=== PATIENT | female | born 1975 | race Caucasian/White ===

== ENCOUNTER 2017-10-21 04:47 | Emergency (ER) | payer BC, OTHER ==
[~2017-10-21] VITALS: Ht 167.6 cm; Wt 106.0 kg
[~2017-10-21 04:47] MED LIST: BCPILLS PO; CALC500C3 PO
[2017-10-21 04:49] VITALS: TEMP 36.8; Ht 167.6 cm; Wt 106.0 kg
[2017-10-21] MEDS ORDERED: KETOROLAC TROMETHAMINE 30 MG/ML VIAL IV STA (04:59)
[2017-10-21] MEDS ORDERED: DiphenhydrAMINE HCL 50 MG/ML VIAL IV STA (04:59)
[2017-10-21] MEDS ORDERED: METOCLOPRAMIDE HCL INJ 5 MG/ML 2 ML VIAL IV STA (04:59)
[2017-10-21 05:14] VITALS: O2SAT 98
[2017-10-21] MEDS ORDERED: OPTIRAY 320 IV PRN (05:15)
[2017-10-21 05:27] LABS: BASO % 0.3 %; BASO ABS # 0.02 K/uL (0-0.2); EOS ABS # 0.22 K/uL (0-0.5); HEMATOCRIT 40.1 % (37-47); HEMOGLOBIN 14.5 g/dL (12.0-16.0); IG# 0.02 K/uL (0.00-0.02); LYMPH % 30.6 %; LYMPH ABS # 2.21 K/uL (1.2-3.4); MEAN CELL VOLUME 88.1 fL (80-100); MEAN CORPUSCULAR HEMOGLOBIN 31.9 pg (25-34); MEAN CORPUSCULAR HGB CONC 36.2 g/dl (32-36); MEAN PLATELET VOLUME 9.1 fL (7.4-10.4); MONO % 6.1 %; MONO ABS # 0.44 K/uL (0.11-0.59); NEUT % 59.7 %; NEUT ABS # 4.31 K/uL (1.4-6.5); PLATELET COUNT 268 K/uL (130-400); RED CELL DISTRIBUTION WIDTH CV 12.7 % (11.5-14.5); RED CELL DISTRIBUTION WIDTH SD 40.6 fL (36.4-46.3); WHITE BLOOD COUNT 7.22 K/uL (4.8-10.8)
[2017-10-21 05:28] LABS: ISTAT CREATININE 0.8 mg/dl (0.6-1.3); ISTAT IONIZED CALCIUM 1.18 mmol/l (1.12-1.32); ISTAT POTASSIUM 3.4 mEq/L (3.3-5.0)
[2017-10-21 05:47] LABS: ALBUMIN 3.2 gm/dl (3.4-5.0); ALT/SGPT 18 U/L (12-78); AST/SGOT 11 U/L (15-37); BLOOD UREA NITROGEN 13 mg/dl (7-18); CALCIUM 8.7 mg/dl (8.5-10.1); CARBON DIOXIDE 27 mmol/L (21-32); CREATININE 0.87 mg/dl (0.60-1.20); GLUCOSE 89 mg/dl (70-99); POTASSIUM 3.4 mmol/L (3.5-5.1); SODIUM 138 mmol/L (136-145)
[2017-10-21 05:50] LABS: ALKALINE PHOSPHATASE 48 U/L (45-117); TOTAL PROTEIN 7.6 gm/dl (6.4-8.2)
[2017-10-21] MEDS ORDERED: POTASSIUM CHLORIDE 10 MEQ TABCR PO STA (05:50)
--- NOTE | 2017-10-21 06:02 | EMERGENCY ROOM VISIT NOTE ---
History First contact with patient: 04:52 Chief Complaint: ABDOMINAL PAIN Stated Complaint: RIGHT LOWER ABB PAIN,BACK PAIN,NAUSEA Nursing Triage Summary: Patient reports RLQ abdominal pain for the past 2 days with nausea. History of Present Illness The patient is a 41 year old female who presents to the Emergency Room with complaints of nausea with right side and flank pain for the past 2 days has been intermittent steadily getting worse. Nothing makes it better or worse. Pain 7 out of 10 currently described as aching. It occasionally radiates to her groin region. No history of similar symptoms in the past. No colonoscopy. No history of kidney stones. She still has her appendix. Patient denies chest pain, dyspnea, fever, chills, vomiting, diarrhea, dysuria, hematuria, urgency or frequency, vaginal itching or discharge. She is in a monogamous relationship. Review of Systems An 10 system review of systems was completed with positives and pertinent negatives listed in the HPI. Past Medical/Surgical History Surgical Problems: (1) H/O: Family History Cancer Heart disease Hypertension Social History Smoking Status: Never Smoker Smokeless Tobacco Use: No Alcohol Use: none Drug Use: none Marital Status: Housing Status: lives with significant other Current/Historical Medications Scheduled Control Pills ( Control Pills), 1 TAB PO DAILY Physical Exam Vital Signs Date Time Temp Pulse Resp B/P (MAP) Pulse Ox O2 Delivery O2 Flow Rate FiO2 10/21/17 05:14 98 Room Air 10/21/17 04:49 36.8 74 20 135/92 99 Room Air Physical Exam VITALS: Vitals are noted on the nurse's note and reviewed by myself. Vital signs stable. GENERAL: Pleasant, in no acute distress, nondiaphoretic, well-developed well- nourished. SKIN: The skin was without rashes, erythema, edema, or bruising. There is no tenting of the skin. Capillary reflex less than 2 seconds. HEAD: Normocephalic atraumatic. EARS: External auditory canals clear, tympanic membranes pearly dale without erythema or effusion bilaterally. EYES: Pupils equal round and reactive to light and accommodation. Conjunctivae without injection, sclerae without icterus. Extraocular movements intact. NOSE: Patent, turbinates without inflammation or discharge. MOUTH: Mucous membranes moist. Pharynx without erythema or exudate. Uvula midline. Airway patent. Tongue does not deviate. NECK: Supple without nuchal rigidity. No lymphadenopathy. No thyromegaly. Cervical spine is nontender. No JVD. HEART: Regular rate and rhythm without murmurs gallops or rubs. LUNGS: Clear to auscultation bilaterally without wheezes, rales or rhonchi. No retractions or accessory muscle use. ABDOMEN: Positive bowel sounds x 4. Normal tympanic percussion. Soft, tender to palpation right upper and lower quadrants, minimal right CVA tenderness without masses or organomegaly.No guarding or rebound tenderness MUSCULOSKELETAL: No muscle atrophy, erythema, or edema noted. NEURO: Patient was alert and oriented to person place and time. Normal sensation to light and sharp touch. No focal neurological deficits. Medical Decision & Procedures Laboratory Results 10/21/17 05:06 Red Blood Count 4.55, Mean Corpuscular Volume 88.1, Mean Corpuscular Hemoglobin 31.9, Mean Corpuscular Hemoglobin Concent 36.2, Mean Platelet Volume 9.1, Neutrophils (%) (Auto) 59.7, Lymphocytes (%) (Auto) 30.6, Monocytes (%) (Auto) 6.1, Eosinophils (%) (Auto) 3.0, Basophils (%) (Auto) 0.3, Neutrophils # (Auto) 4.31, Lymphocytes # (Auto) 2.21, Monocytes # (Auto) 0.44, Eosinophils # (Auto) 0.22, Basophils # (Auto) 0.02 10/21/17 05:06 Test 10/21/17 05:00 10/21/17 05:06 10/21/17 05:13 Urine Color YELLOW Urine Appearance CLEAR (CLEAR) Urine pH 5.5 (4.5-7.5) Urine Specific [place] 1.021 (1.000-1.030) Urine Protein NEG (NEG) Urine Glucose (UA) NEG (NEG) Urine Ketones NEG (NEG) Urine Occult Blood 2+ (NEG) Urine Nitrite NEG (NEG) Urine Bilirubin NEG (NEG) Urine Urobilinogen NEG (NEG) Urine Leukocyte Esterase NEG (NEG) Urine WBC (Auto) 1-5 /hpf (0-5) Urine RBC (Auto) 5-10 /hpf (0-4) Urine Hyaline Casts (Auto) 1-5 /lpf (0-5) Urine Epithelial Cells (Auto) >30 /lpf (0-5) Urine Bacteria (Auto) NEG (NEG) Urine Test NEG (NEG) White Blood Count 7.22 K/uL (4.8-10.8) Red Blood Count 4.55 M/uL (4.2-5.4) Hemoglobin 14.5 g/dL (12.0-16.0) Hematocrit 40.1 % (37-47) Mean Corpuscular Volume 88.1 fL (80-100) Mean Corpuscular Hemoglobin 31.9 pg (25-34) Mean Corpuscular Hemoglobin Concent 36.2 g/dl (32-36) Platelet Count 268 K/uL (130-400) Mean Platelet Volume 9.1 fL (7.4-10.4) Neutrophils (%) (Auto) 59.7 % Lymphocytes (%) (Auto) 30.6 % Monocytes (%) (Auto) 6.1 % Eosinophils (%) (Auto) 3.0 % Basophils (%) (Auto) 0.3 % Neutrophils # (Auto) 4.31 K/uL (1.4-6.5) Lymphocytes # (Auto) 2.21 K/uL (1.2-3.4) Monocytes # (Auto) 0.44 K/uL (0.11-0.59) Eosinophils # (Auto) 0.22 K/uL (0-0.5) Basophils # (Auto) 0.02 K/uL (0-0.2) RDW Standard Deviation 40.6 fL (36.4-46.3) RDW Coefficient of Variation 12.7 % (11.5-14.5) Immature Granulocyte % (Auto) 0.3 % Immature Granulocyte # (Auto) 0.02 K/uL (0.00-0.02) Est Creatinine Clear Calc Drug Dose 105.8 ml/min Estimated GFR () 96.6 Estimated GFR (Non- 83.3 BUN/Creatinine Ratio 14.9 (10-20) Calcium Level 8.7 mg/dl (8.5-10.1) Total Bilirubin 0.3 mg/dl (0.2-1) Direct Bilirubin < 0.1 mg/dl (0-0.2) Aspartate Amino Transf (AST/SGOT) 11 U/L (15-37) Alanine Aminotransferase (ALT/SGPT) 18 U/L (12-78) Alkaline Phosphatase 48 U/L (45-117) Total Protein 7.6 gm/dl (6.4-8.2) Albumin 3.2 gm/dl (3.4-5.0) Bedside Hemoglobin 14.3 g/dl (12.0-16.0) Bedside Hematocrit 42 % (37-47) Bedside Sodium 141 mEq/L (135-144) Bedside Potassium 3.4 mEq/L (3.3-5.0) Bedside Chloride 101 mEq/L (101-112) Bedside Total CO2 25 mEq/l (24-31) Anion Gap 18.0 mmol/L (16-25) Bedside Blood Urea Nitrogen 13 mg/dl (7-18) Bedside Creatinine 0.8 mg/dl (0.6-1.3) Bedside Glucose (other) 93 mg/dl (70-99) Bedside Ionized Calcium (Andrew) 1.18 mmol/l (1.12-1.32) Medications Administered Medications (Trade) Dose Ordered Sig/Keny Route Start Time Stop Time Status Last Admin Dose Admin Ketorolac Tromethamine (Toradol Inj) 10 mg NOW STAT IV 10/21/17 04:59 10/21/17 05:01 DC 10/21/17 05:12 10 MG Diphenhydramine HCl (Benadryl Inj) 12.5 mg NOW STAT IV 10/21/17 04:59 10/21/17 05:01 DC 10/21/17 05:12 12.5 MG Metoclopramide HCl (Reglan Inj) 10 mg NOW STAT IV 10/21/17 04:59 10/21/17 05:01 DC 10/21/17 05:12 10 MG ED Course Prior records/ancillary studies reviewed. Triage Nursing notes reviewed. Additional history obtained from family The patient's history was concerning for abdominal pain. Differential diagnosis: Etiologies such as appendicitis, diverticulitis, PUD, biliary pathology, UTI, pancreatitis, obstruction, mesenteric ischemia, aortic pathology, infections, inflammatory bowel disease, renal colic, as well as others were entertained. Physical examination findings: As above. ER treatment provided: Toradol, Reglan, Benadryl On reassessment the patient felt better. Diagnostics interpreted by me: The labs revealed negative hCG. No leukocytosis. Stable H&H. Negative urine Imaging studies: CT ABDOMEN & PELVIS With Contrast: Lower thorax is unremarkable. Probable cyst within the left hepatic lobe. Gallbladder, spleen, pancreas and adrenal glands are unremarkable. Probable cyst with the left kidney. Otherwise kidneys and ureters are unremarkable. Cysts with the left ovary measuring up to 3.4 cm. Uterus is unremarkable. Appendix unremarkable. Bowel is unremarkable. No acute osseous abnormality. Radiologist: Korey Kelly MD Exam and history seem consistent with abdominal flank pain with unclear etiology. Patient felt better to be medicated as above. Patient was neurovascularly and neurologically intact. She was well-appearing. Negative hCG. She is advised to follow-up with [facility] for the cyst noted on CT imaging in the family care doctor in a few days for reevaluation or here in the ER sooner for abdominal pain, fevers, vomiting, worsening signs or symptoms or as needed. Patient did not have acute abdomen on exam. She had no pelvic pain. Symptoms have been ongoing for 2 days now. No signs of shingles. By the evaluation outlined above emergent etiologies such as appendicitis, diverticulitis, PUD, biliary pathology, UTI, pancreatitis, obstruction, mesenteric ischemia, aortic pathology, infections, inflammatory bowel disease, renal colic, as well as others were deemed relatively unlikely. The pt informed about the findings as listed above. All questions were answered and pleased with the treatment. Return instructions were outlined and the patient was discharged in stable condition. Referral: The patient was referred back to their primary care physician and [facility] for follow-up in 2 to 3 days for a recheck of the current condition. Case reviewed with my attending The chart was completed utilizing [employer] Speech voice recognition software. Grammatical errors, random word insertions, pronoun errors, and incomplete sentences are an occassional consequence of this system due to software limitations, ambient noise, and hardware issues. Any formal questions or concerns about the content, text, or information contained within the body of this dictation should be directly addressed to the physician retirement assistant for clarification. Medical Decision As above Medication Reconcilliation Current Medication List: was personally reviewed by me Blood Pressure Screening Patient's blood pressure: Normal blood pressure Impression Primary Impression: Right sided abdominal pain Additional Impressions: Right flank pain Ovarian cyst Hypokalemia Departure Information Dispostion Home / Self-Care Condition GOOD Referrals Gloria Roy M.D. (PCP) Patient Instructions My [facility] Additional Instructions DO NOT drive, drink alcohol, operate machinery, or perform dangerous activities today. You were given medications in the ER that can affect your ability to safely function or operate a vehicle. Recommend repeat pelvic ultrasound in 6 weeks for resolution of cyst. Rest. Stay well hydrated. No strenuous activity until symptoms resolve. Ibuprofen(Motrin, Advil) may be used for fever or pain. Use 600mg every six hours as needed. Take with food. Avoid using more than 2400mg in a 24 hour period. Do not use 2400mg per day for more than three consecutive days without physician direction. Prolonged inappropriate use can lead to stomach upset or ulcers. (AND/OR) Acetaminophen(Tylenol) may be used for fever or pain. Use 1000mg every six hours as needed. Avoid using more than 3000mg in a 24 hour period. Rest and drink plenty of fluids as tolerated. Continue current medications. Return to the ER immediately for severe pain, heavy vaginal bleeding, abdominal pain, vomiting, fevers, chest pains, difficulty breathing, worsening of your condition, or as needed. Follow up with your [facility]IC[facility] and family care doctor in 2-3 days for a recheck of your current condition. Problem Qualifiers
[2017-10-21 06:07] VITALS: BP 116/67; PULSE 63; O2SAT 98
--- NOTE | 2017-10-21 08:52 | DIAGNOSTIC IMAGING REPORT ---
ABDOMEN AND PELVIS CT WITH IV CONTRAST CT DOSE: 1257.45 mGy.cm HISTORY: right side pain, ?appy/GB/stone TECHNIQUE: Multiaxial CT images of the abdomen and pelvis were performed following the use of intravenous contrast. A dose lowering technique was utilized adhering to the principles of ALARA. COMPARISON STUDY: None. FINDINGS: The lung bases are clear. No pneumoperitoneum. No pneumatosis. The gallbladder, spleen, adrenal glands, and right kidney are unremarkable. Single hypodense lesion seen within the left hepatic lobe and left kidney. These likely represent cysts. No hydronephrosis. No retroperitoneal lymphadenopathy. The bladder is not well-distended but appears unremarkable. The right ovary is normal. There is a 3.4 cm left ovarian cyst. An 8 mm subserosal fibroid at the uterine fundus. No bowel wall thickening or obstruction. Normal appendix. IMPRESSION: 1. Normal appendix. 2. No bowel wall thickening or obstruction. 3. No hydronephrosis. 4. Hepatic and left renal cyst. There is also a 3.4 cm left ovarian cyst. Electronically signed by: Partha Beth M.D. 10/21/2017 7:16 AM Dictated Date/Time: 10/21/2017 7:10 AM
== END 2017-10-21 06:10 | disposition home or self-care (01) ==
LOC: C.EDB 04:48 → C.EDA 06:10
DX: R10.31 Right lower quadrant pain (principal); R10.11 Right upper quadrant pain; N83.209 Unspecified ovarian cyst, unspecified side; E87.6 Hypokalemia; Z79.3 Long term (current) use of hormonal contraceptives; Z98.891 History of uterine scar from previous surgery

== ENCOUNTER 2025-01-03 05:35 | Observation (INO) ==
--- NOTE | 2024-12-25 13:44 | Anesthesiology Consultation ---
Date of Service December 25, 2024 Assessment & Plan Chart Review Chart Review: Acceptable Risk for Surgery and Patient NOT seen in Pre Admission Testing Consults Requested none History Surgery Operation Date: 01/03/25 10:00 Proposed Procedures p Laparoscopic Total Hysterectomy, Bilateral Salpingectomy and Cystoscopy, Possible Laparotomy as any Indicated Procedure - Harjit Cesar MD Height/Weight Height: 5 ft 6 in Weight: 115.666 kg Allergies Allergy/AdvReac Type Severity Reaction Status Date / Time No Known Allergies Allergy Verified 12/20/24 09:15 Medications Home Medications Medication Instructions Recorded Confirmed Last Taken norethindrone acetate 5 mg tablet 5 mg PO UD 12/20/24 12/20/24 Unknown Past Medical History Medical History (Updated 12/20/24 @ 09:34 by Coleen Niño) Hx of blood clots 06/2024, 2/ to sx, "superficial per dr" above right ankle, on eliquis for ~2 months only, no recent issues per pt History of anesthesia reaction "blood pressure always goes extremely low, but always wakes up fine" IUD (intrauterine device) in place Hx of gastroesophageal reflux (GERD) no current meds Hx of chest pain 2015, 2/ to acid reflux and esophageal spasm no cardiac findings Past Surgical History Surgical History History of endometrial ablation 06/2024, w/ D&C Hx of section x2 Social History Smoking Status: Never smoker Do You Dip or Chew Tobacco: No Hx Alcohol Use: Yes alcohol intake frequency: holidays/special occasions only Hx Substance Use: No substance use type: does not use
[2025-01-03] MEDS: LR 15ML/HR IV SCH (06:02)
[2025-01-03] MEDS: LACTATED RINGER'S 1,000 ML IV SCH (06:03)
[2025-01-03] MEDS ORDERED: PROMETHAZINE HCL 6.25 MG in SODIUM CHLORIDE 0.9% 50 ML IV PRN (06:42)
[2025-01-03] MEDS ORDERED: FLUMAZENIL 0.1 MG/1 ML 10 ML VIAL IV PRN (06:42)
[2025-01-03] MEDS ORDERED: ONDANSETRON INJ 2 MG/ML 2 ML VIAL IV PRN ×2 (06:42→10:14)
[2025-01-03] MEDS ORDERED: MIDAZOLAM HCL 1 MG/ML 2ML VIAL ONE (06:42)
[2025-01-03] MEDS ORDERED: NALOXONE HCL 0.4 MG/1 ML VIAL/CARP IV PRN (06:42)
[2025-01-03] MEDS ORDERED: ATROPINE SULFATE 0.1 MG/ML 10ML SYR IV PRN (06:42)
[2025-01-03] MEDS ORDERED: LIDOCAINE 2% 2 ML VIAL/AMP(20MG/ML) INFIL ONE (06:43)
[2025-01-03] MEDS ORDERED: ROCURONIUM BROMIDE 10 MG/ML 5 ML VIAL IV ONE ×2 (06:43→08:07)
[2025-01-03] MEDS ORDERED: PROPOFOL IV EMULSION 10 MG/ML 20 ML VIAL IV ONE (06:43)
[2025-01-03] MEDS ORDERED: ONDANSETRON INJ 2 MG/ML 2 ML VIAL ONE ×2 (06:43→09:07)
[2025-01-03] MEDS ORDERED: DEXAMETHASONE SOD INJ 4 MG/ML VIAL ONE ×2 (06:43→07:32)
[2025-01-03] MEDS ORDERED: ACETAMINOPHEN 1000 MG/100 ML IV IV ONE (06:55)
--- NOTE | 2025-01-03 07:00 | History & Physical Bridge Note ---
Date of Service January 03, 2025 History & Physical Bridge Note I have examined the patient, reviewed the History & Physical and in the interval since the performance of the History & Physical I have noted the following changes of clinical significance: no changes noted
[2025-01-03] MEDS ORDERED: ePHEDrine sulfate 50 MG/5 ML SYR ONE (07:39)
[2025-01-03] MEDS ORDERED: KETOROLAC 30 MG/ML VIAL ONE (07:54)
[2025-01-03] MEDS: metroNIDAZOLE 500 MG/100 ML BAG IV SCH (08:10)
[2025-01-03] MEDS: BUPIVACAINE 0.5 % 5 MG/1 ML MPF 30ML VIAL ONE (08:26)
[2025-01-03] MEDS ORDERED: METHYLENE BLUE 0.5% 10 ML VIAL ONE (09:02)
[2025-01-03] MEDS ORDERED: SUGAMMADEX SODIUM 200 MG/2 ML VIAL IV ONE (09:06)
[2025-01-03] MEDS: FLOSEAL HEMOSTATIC MATRIX 10ML TOP ONE (09:13)
[2025-01-03] MEDS: BUPIVACAINE/EPINEPHRINE 0.5% MPF 1:200,000 30 ML VIAL ONE (09:36)
[2025-01-03] MEDS ORDERED: MEPERIDINE HCL 25 MG/ML CARP/VIAL IV PRN (10:14)
[2025-01-03] MEDS ORDERED: ACETAMINOPHEN 325 MG TAB PO PRN (10:14)
[2025-01-03] MEDS ORDERED: ZOLPIDEM TARTRATE 5 MG TAB PO PRN (10:14)
[2025-01-03] MEDS ORDERED: MAGNESIUM HYDROXIDE SUSP 30 ML UDC PO PRN (10:14)
[2025-01-03] MEDS ORDERED: PROMETHAZINE 12.5 MG/50.5 ML BAG IV PRN (10:14)
--- NOTE | 2025-01-03 10:37 | Operative Report ---
Post Operative Report Pre & Post Diagnosis Operation Date: 01/03/25 07:00 Pre-Op Diagnosis: Menorrhagia, Failed Medical Treatment, Fibroid Uterus Post-Op Diagnosis: Menorrhagia, Failed Medical Treatment, Fibroid Uterus I identified the patient and participated in the time-out.: Yes Procedure Operation Date: 01/03/25 07:00 Actual Procedures p Laparoscopic Total Hysterectomy, Bilateral Salpingectomy. resection of left ovary. and Intrauterine Device Removal - Harjit Cesar MD s Cystoscopy - Harjit Cesar MD Surgeon Harjit Cesar MD [employer] roney rios Estimated Blood Loss 10 Findings Consistent with Post-Op Diagnosis Normal female escutcheon no lesions in the vagina or cervix vulva appear grossly normal. IUD string is seen at cervical os and easily removed. Laparoscopic findings showed none to uterus about 12 weeks size. Right ovary and tube appear grossly normal left tube appears normal the left ovary however had an endometrioma like lesion on the anterior surface. There is window hemostasis seen in the posterior cul-de-sac. Rest of the abdominal pelvic exam is unremarkable. Cystoscopy was unremarkable no lesions or masses seen in the bladder. Left and right ureteral orifice are both seen. Blue dye is seen effluxing from both Fluids IVF; 700ml urine: 800ml Specimens Uterus and cervix left and right fallopian resection of left ovary Drains None Anesthesia Type General Complications None Indications Menorrhagia, failed IUD treatment Description of Procedure FINDINGS: DESCRIPTION OF PROCEDURE: The patient was prepped and draped in normal sterile fashion in the dorsal lithotomy position. Means catheter was placed without difficulty. IUD string is present at the cervix. String is grasped with a Yoselyn and removed. IUD sent to pathology for pathological analysis. An AdvincLookIt uterine manipulator was placed in the uterus to help with colpotom y. Attention was paid to the abdominal part of the procedure where a supraumbilical incision was made and carried down to the fascia. Onur was used to grab the fascia. Veress needle was introduced into the abdomen at a 45-degree angle while tenting up the abdomen. Intra-abdominal placement was confirmed with a water-filled syringe. A water drop and suction test was performed. The abdomen was insufflated with CO2 gas. The Veress needle was removed and a 5 mm non bladed trocar was attached to a laparoscope was introduced into the abdomen under direct visualization. This was a non bladed trocar. Once inside the abdomen, laparoscope was repositioned. Inspection of the abdomen shows the findings as dictated above. Three more accessory ports were placed, two 5 mm accessory ports were placed in the lower abdomen on the contralateral side, in addition, an 11 mm trocar was placed on the left upper quadrant. General inspection of the abdomen and pelvis was performed as dictated above. Left and right fallopian tubes, the ureters, uterosacrals, bowels were examined and identified. The left ovary had an endometrioma like lesion on the anterior surface. There was also window of guanakito seen in the posterior cul-de-sac. LigaSure was passed through the left accessory port. LigaSure was used to resect the portion of the endometrioma like lesion on the left ovary and sent to pathology for analysis. There was good hemostasis on the remaining part of the left ovary. The left fallopian tube was identified and grabbed 4 cm from the cornua of the uterus with the LigaSure and transected. This was followed by opening of the left anterior leaf of the broad ligament. This allowed for fenestration of the posterior left broad ligament. The mid-section of the left fallopian tube, utero-ovarian and meso-ovarian pedicles were transected as well. Same procedure was performed on the contralateral side. The anterior broad ligament dissection was carried to the mid-section of the vesicouterine peritoneum over the bladder using the Harmonic scalpel. Same procedure was carried out on the contralateral side. The posterior broad ligament peritoneum was carefully dissected also from both sides over the uterosacral arch in order to displace the ureters laterally. Using traction and countertraction, the [place] retractor and irrigation probe was used to further dissect the bladder off the lower segment of the uterus. Bladder pillars and pubovesical fascia was dissected as well. Harmonic scalpel was used to obtain hemostasis where needed. Uterine manipulator was now palpable over the vaginal tissue. The right uterine pedicles were skeletonized and coagulated with the LigaSure. Good hemostasis was obtained. Same procedure was performed on the contralateral side. Cardinal ligaments were transected on both sides. Once good hemostasis was obtained, colpotomy was performed using the LigaSure hook from both sides. Uterus was removed through the vagina while still attached to the uterine manipulator. The bulb was attached to the uterine manipulator was reinserted into the vagina to establish pneumoperitoneum. With a grasper, the remaining section of the left ovary and tube were positioned anteromedially. The left fallopian tube is grabbed with ligature and transected. The transection is done close to the fallopian tube in order to preserve the ovarian vascular integrity. The left fallopian tube is removed through the 11 mm port . Same procedures performed on the right adnexa. The right fallopian tube is also removed once again leaving the right ovary behind.Right fallopian tube specimen is also removed through the 11 mm port. Both fallopian tube specimens sent to pathology for pathological analysis EndoStitch closure device was passed through the 11 mm port on the left. Using the [place] grasper for traction, colpotomy closure was performed. The uterosacral ligaments incorporated into the closure in order to decrease the risk of prolapse. Lapro ties were used with the EndoStitch. The 11-mm trocar site was closed with a Edwin-Peng under direct visualization. Attention was paid to the cystoscopy part of the procedure where a cystoscope was introduced into the bladder. There are no sutures seen in the bladder. There were no gross blood seen in the bladder as well. The bubble sign is noted showing the bladder was a close cavity. Both ureters were seen and there was efflux from both uterus. The skin incisions are closed with Dermabond, except for the 11-mm trocar site, which was closed with 4-0 Monocryl. The patient was returned to recovery in stable condition. Inspection of the vagina shows the vaginal cuff was intact. All instruments were removed from the vagina and the bladder and accounted for x2. [employer] was necessary for retraction and manipulation of instruments in order to provide for a safe operation I attest to the content of the Intraoperative Record and any orders documented therein. Any exceptions are noted below.
--- NOTE | 2025-01-03 10:55 | Anesthesiology Progress Note ---
Date of Service January 03, 2025 Anesthesia Post Procedure Vital Signs Vital Signs: Temp Pulse Pulse Resp BP Pulse Ox O2 Del Method 01/03/25 10:50 73 21 110/58 L 96 Room Air 01/03/25 10:40 36.6 C 70 17 108/63 98 Room Air 01/03/25 10:30 75 17 112/61 100 Room Air 01/03/25 10:20 68 18 117/60 100 Oxymask 01/03/25 10:10 73 24 114/64 100 Oxymask 01/03/25 10:00 68 23 108/59 L 96 Oxymask 01/03/25 09:54 36.3 C L 71 19 88/54 L 92 Oxymask 01/03/25 05:55 36.9 C 72 18 163/91 H 100 Room Air O2 Flow Rate 01/03/25 10:50 01/03/25 10:40 01/03/25 10:30 01/03/25 10:20 3 01/03/25 10:10 6 01/03/25 10:00 10 01/03/25 09:54 10 01/03/25 05:55 Pain Intensity Lower Abdomen: Pain Intensity: 4 Transfer of Care Handoff Completed per policy Notes Mental Status: alert / awake / arousable Patient Amnestic to Procedure: Yes Nausea / Vomiting: adequately controlled Pain: adequately controlled Airway Patency, RR, SpO2: stable & adequate BP & HR: stable & adequate Hydration State: stable & adequate Anesthetic Complications: no major complications apparent
[2025-01-03] MEDS: KETOROLAC 30 MG/ML VIAL IV PRN (12:05)
[2025-01-03] MEDS: IBUPROFEN 600 MG TAB PO PRN (13:27)
[2025-01-03] MEDS: SIMETHICONE 80 MG CHEW PO PRN (17:06)
[2025-01-03 20:19] LABS: Hematocrit (blood only) 29.4 % (37.0-47.0); Hemoglobin 9.4 g/dl (12.0-16.0); Immature Granulocytes # (auto) 0.04 K/uL (0.01-0.20); Immature Granulocytes % (auto) 0.4 %; Mean Corpuscular Hemoglobin 23.5 pg (25.0-34.0); Mean Corpuscular Volume 73.5 fL (80.0-100.0); Platelet Count 307 K/uL (130-400); RDW Standard Deviation 50.2 fL (36.4-46.3); Red Blood Count 4.00 M/uL (4.20-5.40); White Blood Count 9.98 K/ul (4.8-10.8)
[2025-01-03] MEDS: ENOXAPARIN INJ 40 MG/0.4 ML SYR SQ SCH (20:51)
[2025-01-03] MEDS: DOCUSATE SODIUM 100 MG CAP PO SCH (20:51)
--- NOTE | 2025-01-03 20:52 | Obstetrical Progress Note ---
Date of Service January 03, 2025 Assessment & Plan (1) Postop check: Pt doing well Abd: Bruising at sites of trochar LUQ trochar site is 8 X6 inc and marked Hemoglobin is stable Plan Expectant management for now Physical Exam Constitutional WD/WN, vitals as above Eyes PERRL, conjunctivae normal, anicteric sclerae ENMT external ear and nose normal, oropharynx normal Neck trachea midline, no thyromegaly Respiratory normal respiratory effort, lungs clear to auscultation Cardiovascular RRR, no murmur, no edema Chest (Breasts) normal inspection/palpation of breasts Gastrointestinal (Abdomen) normal bowel sounds, soft, nontender, no hepatosplenomegaly Musculoskeletal no cyanosis or clubbing, extremities motor strength 5/5 Skin + incision (Incision clean,dry and intact) Neurologic patellar DTR's 2+ bilat, sensation intact Psychiatric A+Ox3, euthymic affect Genitourinary no vaginal lesions, no adnexal mass Lymphatic no cervical or axillary lymphadenopathy Results & Data Vital Signs (Past 12 Hours) Vital Signs Temp Pulse Pulse Resp BP Pulse Ox O2 Del Method 01/03/25 19:15 36.8 C 76 18 123/68 98 Room Air 01/03/25 14:49 36.6 C 62 16 112/78 100 Room Air 01/03/25 13:30 36.7 C 72 16 114/69 100 Room Air 01/03/25 12:17 36.4 C L 65 16 109/58 L 100 Room Air 01/03/25 11:51 36.4 C L 72 16 125/67 100 Room Air 01/03/25 11:05 66 16 101/64 100 Room Air 01/03/25 10:50 73 21 110/58 L 96 Room Air 01/03/25 10:40 36.6 C 70 17 108/63 98 Room Air 01/03/25 10:30 75 17 112/61 100 Room Air 01/03/25 10:20 68 18 117/60 100 Oxymask 01/03/25 10:10 73 24 114/64 100 Oxymask 01/03/25 10:00 68 23 108/59 L 96 Oxymask 01/03/25 09:54 36.3 C L 71 19 88/54 L 92 Oxymask O2 Flow Rate 01/03/25 19:15 01/03/25 14:49 01/03/25 13:30 01/03/25 12:17 01/03/25 11:51 01/03/25 11:05 01/03/25 10:50 01/03/25 10:40 01/03/25 10:30 01/03/25 10:20 3 01/03/25 10:10 6 01/03/25 10:00 10 01/03/25 09:54 10
[2025-01-03 21:02] LABS: INR 1.0 (0.9-1.1); Prothrombin Time 11.0 Seconds (9.0-12.0)
[2025-01-04 07:01] LABS: Hematocrit (blood only) 27.8 % (37.0-47.0); Hemoglobin 8.8 g/dl (12.0-16.0); Immature Granulocytes # (auto) 0.02 K/uL (0.01-0.20); Immature Granulocytes % (auto) 0.3 %; Mean Corpuscular Hemoglobin 23.5 pg (25.0-34.0); Mean Corpuscular Volume 74.3 fL (80.0-100.0); Platelet Count 291 K/uL (130-400); RDW Standard Deviation 51.4 fL (36.4-46.3); Red Blood Count 3.74 M/uL (4.20-5.40); White Blood Count 7.61 K/ul (4.8-10.8)
[2025-01-04 07:18] LABS: Anion Gap 5.0 (3-11); Blood Urea Nitrogen 10.0 mg/dl (6-23); Calcium 8.0 mg/dl (8.6-10.3); Carbon Dioxide 25.0 mmol/L (21-32); Chloride 108.0 mmol/L (98-107); Creatinine Clr Calc Pharmacy 124.0 ml/min; Glucose 98.0 mg/dl (70-99(Fasting)); Potassium 3.4 mmol/L (3.5-5.1); Sodium 138.0 mmol/L (136-145)
[2025-01-04 08:42] VITALS: BP 100/64; RESP 14; TEMP 97.5; O2SAT 96
--- NOTE | 2025-01-04 09:50 | Gynecologic Progress Note ---
Date of Service January 04, 2025 Assessment & Plan Admission and Anticipated Discharge Date Admission Date: January 03, 2025 Subjective doing well. OOB and to the bathroom OK. passing gas and tolerating diet well. No significant pain. No nausea or vomiting. Physical Exam Constitutional: WD/WN, vitals as above Gastrointestinal (Abdomen): Inspection/Auscultation: abdomen normal to inspection incisions c/d/i Musculoskeletal: Extremities: extremities normal to inspection Skin: no rashes, warm and dry Neurologic: patellar DTR's 2+ bilat, sensation intact Psychiatric: A+Ox3, euthymic affect Results & Data Vital Signs (Past 12 Hours) Vital Signs Temp Pulse Pulse Resp BP Pulse Ox O2 Del Method 01/04/25 07:36 36.4 C L 65 14 100/64 96 Room Air 01/04/25 03:56 36.6 C 88 16 109/67 95 Room Air 01/03/25 23:43 36.8 C 65 18 109/60 95 Room Air Laboratory Results Laboratory Results - last 72 hr 01/03/25 01/03/25 01/03/25 05:39 06:00 20:03 WBC 9.98 RBC 4.00 L Hgb 9.4 L Hct 29.4 L MCV 73.5 L MCH 23.5 L MCHC 32.0 RDW Std Deviation 50.2 H RDW Coeff of Ttia 18.8 H Plt Count 307 MPV 9.3 L Immature Gran % (Auto) 0.4 Neut % (Auto) 88.8 Lymph % (Auto) 6.1 Avery % (Auto) 4.6 Eos % (Auto) 0.0 Baso % (Auto) 0.1 Neut # (Auto) 8.86 H Lymph # (Auto) 0.61 L Avery # (Auto) 0.46 Eos # (Auto) 0.00 Baso # (Auto) 0.01 Immature Gran # (Auto) 0.04 PT 11.0 INR 1.0 Sodium Potassium Chloride Carbon Dioxide Anion Gap BUN Creatinine Est Cr Clr Drug Dosing eGFR BUN/Creatinine Ratio Glucose Calcium POC Ur Test NEG Blood Type A Positive Antibody Screen NEGATIVE 01/04/25 06:27 WBC 7.61 RBC 3.74 L Hgb 8.8 L Hct 27.8 L MCV 74.3 L MCH 23.5 L MCHC 31.7 L RDW Std Deviation 51.4 H RDW Coeff of Tita 19.1 H Plt Count 291 MPV 9.9 Immature Gran % (Auto) 0.3 Neut % (Auto) 69.2 Lymph % (Auto) 22.9 Avery % (Auto) 7.5 Eos % (Auto) 0.0 Baso % (Auto) 0.1 Neut # (Auto) 5.27 Lymph # (Auto) 1.74 Avery # (Auto) 0.57 Eos # (Auto) 0.00 Baso # (Auto) 0.01 Immature Gran # (Auto) 0.02 PT INR Sodium 138 Potassium 3.4 L Chloride 108 H Carbon Dioxide 25 Anion Gap 5 BUN 10 Creatinine 0.73 Est Cr Clr Drug Dosing 124.0 eGFR 101.38 BUN/Creatinine Ratio 13.7 Glucose 98 Calcium 8.0 L POC Ur Test Blood Type Antibody Screen
[2025-01-04] MEDS: LOVENOX TEACHING KIT SCH (10:01)
[2025-01-04 10:32] VITALS: PULSE 88
== END 2025-01-04 10:32 | disposition home or self-care (01) ==
LOC: 4E1 05:35 → ASU 05:35